=== PATIENT | female | born 2005 | race Caucasian/White ===

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

== ENCOUNTER → 2023-02-21 | Outpatient (CLI) | payer OTHER, SELFPAY | END | disposition home or self-care (01) | LOC: LABSPEC 10:25 | PROVIDERS: Visit Provider Registered Nurse | DX: O26.899 Other specified pregnancy related conditions, unspecified trimester (principal); N89.8 Other specified noninflammatory disorders of vagina; O99.891 Other specified diseases and conditions complicating pregnancy; Z3A.00 Weeks of gestation of pregnancy not specified | CPT/HCPCS: 87070; 87205 ==

== ENCOUNTER → 2023-03-11 | Outpatient (CLI) | payer OTHER, SELFPAY ==
[2023-03-11 09:08] LABS: Absolute Lymphocyte Count 1.55 X10^3/uL (0.83-4.51); Absolute Neutrophil Count 6.7 X10^3/uL (2.0-7.7); Basophil# 0.04 X10^3/uL; Basophil% 0.5 % (0-1); Eosinophil# 0.06 X10^3/uL; Eosinophils% 0.7 % (0-5); Hemoglobin 9.8 g/dL (12.0-15.0); Lymphocyte # 1.55 X10^3/ul (0.83-4.51); Lymphocyte % 17.5 % (19-41); Mean Corp Hgb Conc 32.7 g/dL (32-36); Mean Corpuscular Hgb 30.3 pg (27.0-32.0); Mean Corpuscular Volume 92.9 fL (81-99); Mean Platelet Vol. 9.2 fl (6.2-12.0); Monocyte# 0.43 X10^3/uL; Monocyte% 4.8 % (0-10); NRBC Flagged by Analyzer 0 % (0-5); Neutrophil # 6.65 X10^3/uL (2.7-7.7); Neutrophil % 74.9 % (47-70); Platelet Count 259 K/mm3 (150-450); RBC Distribution Width CV 12.9 % (11.6-14.6); Red Blood Count 3.23 M/mm3 (4.2-5.4); White Blood Count 8.9 K/mm3 (4.4-11.0)
[2023-03-11 09:17] LABS: Glucose Challenge Gest 1H 50g 139 mg/dL (70-140)
[2023-03-11 09:51] LABS: HIV - WCH Non-Reactive (Nonreactive); Syphilis Antibodies Non-reactive
== END | disposition home or self-care (01) ==
LOC: PAVLAB 08:39
PROVIDERS: Referring Provider Obstetrics & Gynecology; Visit Provider Obstetrics & Gynecology
DX: Z34.90 Encounter for supervision of normal pregnancy, unspecified, unspecified trimester (principal); Z3A.00 Weeks of gestation of pregnancy not specified
CPT/HCPCS: 36415; 82950; 85025; 86703; 86780

== ENCOUNTER → 2023-04-01 | Outpatient (CLI) | payer OTHER, SELFPAY ==
[2023-04-01 10:35] LABS: Glucose GTT-Gestation. Fasting 87 mg/dL (<105)
--- OUTSIDE RECORDS SUMMARY | 2023-04-01 10:41 | XMS RPT_ITS | CCD ---
Author Name Unknown Address [address] [place] [address] Organization [facility] Care Team Providers Care Garbage Collector Supervisor Name Role Phone PANKAJ HURST (PROCESS ANALYST) Unavailable Unavailable DEMAR AREVALO Attending Unavailable MANUEL MIR Primary Care Unavailable REFERRED, SELF Referring Unavailable ANTONIO CORDON Referring Unavailable MANUEL MIR Primary Care Unavailable GIRISH CUI Attending Unavailable ANTONIO CORDON Attending Unavailable MANUEL MIR Primary Care Unavailable GONZALES GUTHRIE Referring Unavailable ANTONIO CORDON Attending Unavailable MANUEL MIR Primary Care Unavailable NINOSKA PUENTES Referring Unavailable MANUEL MIR Primary Care Unavailable ASHOK EDGE Referring Unavailabl e DEMAR AREVALO Attending Unavailable Allergies Allergy Classification Reported Allergen(s) Allergy Type Date of Onset Reaction(s) Facility (1 source) fluconazole; Translations: [FLUCONAZOLE] Drug Allergy 11-03-2004 [facility] Repository Results Test Name Value Interpretation Reference Range Facil ity Encounters Encounter Date Encounter Type Care Provider Facility Start: 03-24-2023 End: 03-24-2023 ambulatory DEMAR GARDNERER [facility] Start: 03-17-2023 End: 03-17-2023 ambulatory ANTONIO A CORDON [facility] Start: 03-17-2023 End: 03-17-2023 ambulatory ANTONIO A CORDON [facility] Start: 02-14-2023 End: 02-14-2023 ambulatory ANTONIO A CORDON [facility] Start: 01-18-2023 End: 01-18-2023 ambulatory MANUEL MIR [facility] Start: 04-27-2017 End: 05-03-2017 Ambulatory PANKAJ Milton (PROCESS ANALYST) [facility] Payers Date Payer Category Payer Unknown [id number] 2.16. [id number] 2003 Unknown [id number] 2.16. [id number] 2003 Unknown [id number] 2.16. [id number] 2003 Unknown [id number] 2.16. [id number] 2003 Unknown [id number] 2.16. [id number] Private Health Insurance [id number] Unknown [id number] Clinical Note 03-17-2023 Note Date & Type Note Facility 03-17-2023 Note Kwadwo garcia is here for consultation at the request of Manuel Mir DO for: Abnormal Kidney History of Presenting Problem: Patient is accompanied by and history obtained from herself and her mother. Carrying a fetus with bilateral hydro. Was 9 bilaterally. 7 and 10 last visit. Bladder was noted to be prominent at first US. Normal amniotic fluid. 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 Stable at this time. 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 No issues currently. Past Surgical History: Procedure Laterality Date TYMPANOSTOMY TUBE PLACEMENT Allergies: No Known Allergies Medications: Outpatient Encounter Medications as of 03/17/2023 Medication Sig Dispense Refill MV-Min-Fe Fum-FA-DHA ( 1 PO) Take by mouth No facility-administered encounter medications on file as of 03/17/2023. Family Medical History: No family history on file. Social History: Social History Socioeconomic History Marital status: Single Spouse name: Not on file Number of children: Not on file Years of education: Not on file Highest education level: Not on file Occupational History Not on file Tobacco Use Smoking status: Never Smokeless tobacco: Never Substance and Sexual Activity Alcohol use: Not Currently Drug use: Never Sexual activity: Not on file Other Topics Concern Not on file Social History Narrative Not on file Additional History Review of Systems: No cardiac, respiratory/airway or bleeding disorders. See HPI for others pertinent to urology. Physical Examination: Physical Exam There were no vitals filed for this visit. : Bladder non-distended, gravid abdomen Laboratory Testing: No results found for this visit on 03/17/23. No results found for: URINECULT Imaging: See hpi. Independent review of imaging was provided for the patient (and family). Assessment & Plan: Kwadwo was seen today for abnormal kidney. Diagnoses and all orders for this visit: Kidney abnormality of fetus on ultrasound - AMB Referral To Urology Recommend amox prophylaxis and US within 1 week after . Discussed hydro, VUR, and concern for posterior urethral valves. Discussed possible additional testing with VCUG and/or Lasix scan. Discussed possible surgery, etc. All questions answered. Girish Cui MD March 17, 2023 [facility] Summary Purpose Family History No Family History Records FoundNo Family History Records Found Advance Directives No Advanced Directives Records FoundNo Advanced Directives Records Found Additional Source Comments INFORMATION SOURCE (unrecogn ized section and content) DATE CREATED AUTHOR AUTHOR'S ORGANIZ ATION 03/26/2023 [facility] FOR RECORDS PERTAINING TO PATIENTS WHO ARE OR HAVE BEEN ENROLLED IN A CHEMICAL DEPENDENCY/SUBSTANCEABUSE PROGRAM, SOME INFORMATION MAY BE OMITTED. This clinical summary was aggregated from multiple sources. Caution should be exercised in using it in the provision of clinical care. This summary normalizes information from multiple sources, and as a consequence, information in this document may materially change the coding, format and clinical context of patient data. In addition, data may be omitted in some cases. CLINICAL DECISIONS SHOULD BE BASED ON THE PRIMARY CLINICAL RECORDS. [employer] provides no warranty or guarantee of the accuracy or completeness of information in this document.
[2023-04-01 11:33] LABS: Glucose GTT-Gestational 1 Hr 191 mg/dL (<190)
[2023-04-01 12:51] LABS: Glucose GTT-Gestational 2 Hr 164 mg/dL (<165)
[2023-04-01 13:55] LABS: Glucose GTT-Gestational 3 Hr 135 L (<145)
== END | disposition home or self-care (01) ==
PROVIDERS: Obstetrics & Gynecology; Referring Provider Nurse Practitioner Women's Health; Visit Provider Nurse Practitioner Women's Health
DX: O99.810 Abnormal glucose complicating pregnancy (principal); Z3A.00 Weeks of gestation of pregnancy not specified
CPT/HCPCS: 36415; 82951; 82952

== ENCOUNTER 2023-04-14 11:47 | Outpatient (RCR) | payer OTHER, MEDICAID, SELFPAY | END 2023-04-27 23:59 | LOC: DC 11:47 | PROVIDERS: Referring Provider Obstetrics & Gynecology; Visit Provider Obstetrics & Gynecology | DX: O24.419 Gestational diabetes mellitus in pregnancy, unspecified control (principal) | CPT/HCPCS: 97802 ==

== ENCOUNTER 2023-05-12 11:30 | Outpatient (RCR) | payer OTHER, MEDICAID, SELFPAY | END 2023-05-26 23:59 | LOC: DC 11:30 | PROVIDERS: Referring Provider Obstetrics & Gynecology; Visit Provider Obstetrics & Gynecology | DX: O24.419 Gestational diabetes mellitus in pregnancy, unspecified control (principal) | CPT/HCPCS: 97803 ==

== ENCOUNTER → 2023-05-13 | Outpatient (CLI) | payer OTHER, MEDICAID, SELFPAY ==
--- OUTSIDE RECORDS SUMMARY | 2023-05-13 12:24 | XMS RPT_ITS | CCD ---
Author Name Unknown Address [address] [place] [address] Organization [facility] Care Team Providers Care Electrical Appliance Repairer Name Role Phone PANKAJ HURST (FUNERAL SERVICE APPRENTICE) Unavailable Unavailable MANUEL MIR Primary Care Unavailable ANTONIO CORDON Attending Unavailable GONZALES GUTHRIE Referring Unavailable MANUEL MIR Primary Care Unavailable NINOSKA PUENTES Referring Unavailable ANTONIO CORDON Attending Unavailable MANUEL MIR Primary Care Unavailable ASHOK EDGE Referring Unavailabl e DEMAR AREVALO Attending Unavailable MANUEL MIR Primary Care Unavailable GONZALES GUTHRIE Referring Unavailable DEMAR AREVALO Attending Unavailable ANTONIO CORDON Attending Unavailable MANUEL MIR Primary Care Unavailable GONZALES GUTHRIE Referring Unavailable MANUEL MIR Primary Care Unavailable DEMAR AREVALO Attending Unavailable GONZALES GUTHRIE Referring Unavailable MANUEL MIR Primary Care Unavailable DEMAR AREVALO Attending Unavailable GONZALES GUTHRIE Referring Unavailable MANUEL MIR Primary Care Unavailable ANTONIO CORDON Attending Unavailable GONZALES GUTHRIE Referring Unavailable MANUEL MIR Primary Care Unavailable REFERRED, SELF Referring Unavailable DEMAR AREVALO Attending Unavailable MANUEL MIR Primary Care Unavailable GIRISH CUI Attending Unavailable ANTONIO CORDON Referring Unavailable Allergies Allergy Classification Reported Allergen(s) Allergy Type Date of Onset Reaction(s) Facility (1 source) fluconazole; Translations: [FLUCONAZOLE] Drug Allergy 11-03-2004 [facility] Repository Results Test Name Value Interpretation Reference Range Facil ity Encounters Encounter Date Encounter Type Care Provider Facility Start: 05-05-2023 End: 05-05-2023 ambulatory MANUEL MIR [facility] Start: 04-28-2023 End: 04-28-2023 ambulatory ANTONIO [facility] Start: 04-21-2023 End: 04-21-2023 ambulatory MANUEL [facility] Start: 04-14-2023 End: 04-14-2023 ambulatory MANUEL [facility] Start: 04-07-2023 End: 04-07-2023 ambulatory MANUEL [facility] Start: 03-24-2023 End: 03-24-2023 ambulatory MANUEL [facility] Start: 03-17-2023 End: 03-17-2023 ambulatory MANUEL [facility] Start: 03-17-2023 End: 03-17-2023 ambulatory MANUEL [facility] Start: 02-14-2023 End: 02-14-2023 ambulatory MANUEL [facility] Start: 01-18-2023 End: 01-18-2023 ambulatory MANUEL [facility] Start: 04-27-2017 End: 05-03-2017 Ambulatory PANKAJ Milton (FUNERAL SERVICE APPRENTICE) [facility] Date Payer Category Payer Unknown [id number] 2.. [id number] 2003 Unknown [id number] 2.. [id number] 2003 Unknown [id number] 2. [id number] 2003 Unknown [id number] 2. [id number] 2003 Unknown [id number] 2.. [id number] 2003 Unknown [id number] 2.. [id number] 2003 Unknown [id number] 2.16. [id number] 2003 Unknown [id number] 2.16. [id number] 2003 Unknown [id number] 2.16. [id number] 2003 Unknown [id number] 2.16. [id number] Unknown [id number] Unknown [id number] Clinical Note 03-17-2023 Note Date & Type Note Facility 03-17-2023 Note Kwadwo Mcclendon garcia is here for consultation at the [...] answered. Girish Cui MD March 17, 2023 [facility] Summary Purpose Family History No Family History Records FoundNo Family History Records Found Advance Directives No Advanced Directives Records FoundNo Advanced Directives Records Found Additional Source Comments INFORMATION SOURCE (unrecogn ized section and content) DATE CREATED AUTHOR AUTHOR'S ORGANIZ ATION 05/07/2023 [facility] FOR RECORDS PERTAINING TO PATIENTS WHO [...] BE BASED ON THE PRIMARY CLINICAL RECORDS. [employer] provides no warranty or guarantee of the accuracy or completeness of information in this document.
== END | disposition home or self-care (01) ==
LOC: LABSPEC 12:04
PROVIDERS: Referring Provider Obstetrics & Gynecology; Visit Provider Obstetrics & Gynecology
DX: Z34.90 Encounter for supervision of normal pregnancy, unspecified, unspecified trimester (principal); Z3A.00 Weeks of gestation of pregnancy not specified
CPT/HCPCS: 87081

== ENCOUNTER 2023-05-19 09:00 | Inpatient (IN) | payer OTHER, MEDICAID, SELFPAY ==
[2023-05-19] VITALS (19 sets, daily range): BP systolic 106–120; BP diastolic 56–82; PULSE 87–109; TEMP 36.2–37; O2SAT 97–98; BMI 25.4
--- OUTSIDE RECORDS SUMMARY | 2023-05-19 09:34 | XMS RPT_ITS | CCD ---
Author Name Unknown Address [address] [place] [address] Organization [facility] Care Team Providers Care Roll Handler Name Role Phone PANKAJ HURST (QUALITY INTERN) Unavailable Unavailable ANTONIO CORDON Attending Unavailable NINOSKA PUENTES Referring Unavailable MANUEL MIR Primary Care Unavailable BRAVO, ANTONIO Allison Attending Unavailable GONZALES GUTHRIE Referring Unavailable MANUEL MIR Primary Care Unavailable ANTONIO CORDON Referring Unavailable GIRISH CUI Attending Unavailable MANUEL MIR Primary Care Unavailable DEMAR AREVALO Attending Unavailable REFERRED, SELF Referring Unavailable MANUEL MIR Primary Care Unavailable ANTONIO CORDON Attending Unavailable GONZALES GUTHRIE Referring Unavailable MANUEL MIR Primary Care Unavailable GONZALES GUTHRIE Referring Unavailable MICKEY, DEMAR Camarena Attending Unavailable MANUEL MIR Primary Care Unavailable GONZALES GUTHRIE Referring Unavailable MICKEY, DEMAR Camarena Attending Unavailable MANUEL MIR Primary Care Unavailable ANTONIO CORDON Attending Unavailable GONZALES GUTHRIE Referring Unavailable MANUEL MIR Primary Care Unavailable MICKEY, DEMAR Camarena Attending Unavailable GONZALES GUTHRIE Referring Unavailable MANUEL MIR Primary Care Unavailable GONZALES GUTHRIE Attending Unavailable GONZALES GUTHRIE Referring Unavailable MANUEL MIR Primary Care Unavailable MICKEY, DEMAR F Attending Unavailable ASHOK EDGE Referring Unavailabl e MANUEL MIR Primary Care Unavailable Allergies Allergy Classification Reported Allergen(s) Allergy Type Date of Onset Reaction(s) Facility (1 source) fluconazole; Translations: [FLUCONAZOLE] Drug Allergy 11-03-2004 [facility] Repository Results Test Name Value Interpretation Reference Range Facil ity Encounters Encounter Date Encounter Type Care Provider Facility Start: 05-12-2023 End: 05-12-2023 ambulatory G[facility]ZALES [facility] Start: 05-05-2023 End: 05-05-2023 ambulatory DEMAR [facility] Start: 04-28-2023 End: 04-28-2023 ambulatory ANTONIO [facility] Start: 04-21-2023 End: 04-21-2023 ambulatory GONZALES [facility] Start: 04-14-2023 End: 04-14-2023 ambulatory GONZALES [facility] Start: 04-07-2023 End: 04-07-2023 ambulatory ANTONIO [facility] Start: 03-24-2023 End: 03-24-2023 ambulatory DEMAR [facility] Start: 03-17-2023 End: 03-17-2023 ambulatory ANTONIO Keegan [facility] Start: 03-17-2023 End: 03-17-2023 ambulatory ANTONIO Keegan [facility] Start: 02-14-2023 End: 02-14-2023 ambulatory ANTONIO Keegan [facility] Start: 01-18-2023 End: 01-18-2023 ambulatory DEMAR [facility] Start: 04-27-2017 End: 05-03-2017 Ambulatory PANKAJ Milton (QUALITY INTERN) [facility] Payers Date Payer Category Payer Unknown [id number] 2.16. [id number] 2003 Unknown [id number] 2.16. [id number] 2003 Unknown [id number] 2.16. [id number] 2003 Unknown [id number] 2.. 840.1.652567.3.579.2.479 2003 Unknown [id number] 2.16. [id number] 2003 Unknown [id number] 2.16. 840.1.465130.3.579.2.479 2003 Unknown [id number] 2.16. 840.1.146171.3.579.2.479 2003 Unknown [id number] 2.16. 840.1.742196.3.579.2.479 2003 Unknown [id number] 2.16. 840.1.795073.3.579.2.479 2003 Unknown [id number] 2.16. 840.1.499212.3.579.2.479 2003 Unknown [id number] 2.16. [id number] Unknown [id number] Unknown [id number] Clinical Note 03-17-2023 Note Date & Type [...] answered. Girish Cui MD March 17, 2023 [facility] Summary Purpose Family History No Family History Records FoundNo Family History Records Found Advance Directives No Advanced Directives Records FoundNo Advanced Directives Records Found Additional Source Comments INFORMATION SOURCE (unrecogn ized section and content) DATE CREATED AUTHOR AUTHOR'S ORGANIZ ATION 05/13/2023 [facility] FOR RECORDS PERTAINING TO PATIENTS WHO ARE [...] BE BASED ON THE PRIMARY CLINICAL RECORDS. [employer] provides no warranty or guarantee of the accuracy or completeness of information in this document.
[2023-05-19] MEDS: Lactated Ringers 1,000 ML 50 ML IV (09:40)
[2023-05-19 10:04] LABS: Absolute Neutrophil Count 8.5 X10^3/uL (2.0-7.7); Basophil# 0.05 X10^3/uL; Basophil% 0.4 % (0-1); Eosinophil# 0.06 X10^3/uL; Eosinophils% 0.5 % (0-5); Hematocrit 33.7 % (37-47); Hemoglobin 11.1 g/dL (12.0-15.0); Lymphocyte % 16.1 % (19-41); Mean Corp Hgb Conc 32.9 g/dL (32-36); Mean Corpuscular Hgb 29.6 pg (27.0-32.0); Mean Corpuscular Volume 89.9 fL (81-99); Mean Platelet Vol. 9.7 fl (6.2-12.0); Monocyte# 0.66 X10^3/uL; Monocyte% 5.9 % (0-10); NRBC Flagged by Analyzer 0 % (0-5); Neutrophil # 8.49 X10^3/uL (2.7-7.7); Neutrophil % 75.9 % (47-70); Platelet Count 270 K/mm3 (150-450); RBC Distribution Width CV 14.5 % (11.6-14.6); RBC Distribution Width SD 47.1 fl (35.1-43.9); Red Blood Count 3.75 M/mm3 (4.2-5.4); White Blood Count 11.2 K/mm3 (4.4-11.0)
[2023-05-19] MEDS: 0.9% Normal Saline Single 100 ML IV.SOLN. INTRA-UTER (10:05)
[2023-05-19 10:54] LABS: Syphilis Antibodies Non-reactive
[2023-05-19] MEDS: Oxytocin 15 Units/NS 250ml 15 UNITS/250 ML IV.SOLN 2 UNITS IV (11:24)
[2023-05-19 11:52] LABS: Bedside Glucose 116 mg/dL (74-106)
[2023-05-19 13:07] LABS: Bedside Glucose 110 mg/dL (74-106)
[2023-05-19] MEDS: LACTATED RINGERS 500 ML 999 ML IV (13:40)
--- NOTE | 2023-05-19 18:17 | HP.PCM.OB_ITS ---
HPI - General General Date of Admission: 05/19/23 HPI Narrative KWADWO HUBBARD, is a 18 y/o @ 37 weeks 4 days who presents to L&D per [facility] for delivery. She was found to have a bpp of 6/8, extensive dilation of the renal pelvis (25mm) into the calyces and hydroureter (10mm), echogenic bowel, and stable umbilical vein varix. Maternal Data Information DANIELA Calculator Estimated Delivery Date Method Current WG Current Estimate 06/05/23 LMP (Certain) 37w 4d PFSH [facility] Medical History (Updated 05/19/23 @ 12:00 by Lola Bro) Abnormal glucose affecting Polyhydramnios Home Medications ferrous sulfate 325 mg (65 mg iron) tablet 325 mg PO DAILY Anemia #30 tabs 03/11/23 [Rx Last Taken 05/17/23 12:00] blood sugar diagnostic (Blood Glucose Test strips) #120 ea 04/04/23 [Rx Last Taken Unknown] blood-glucose meter #1 ea 04/04/23 [Rx Last Taken Unknown] lancets #200 ea 04/04/23 [Rx Last Taken Unknown] vit no.95-ferrous fumarate 28 mg-folic acid 800 mcg tablet () 1 tab PO DAILY 05/19/23 [History Last Taken 05/18/23] Allergy/AdvReac Type Severity Reaction Status Date / Time No Known Allergies Allergy Verified 05/19/23 11:52 Surgical History Status post myringotomy with tube placement of both ears Social History adopted: No current occupational status: employed current occupation: [employer] current occupational exposures/hazards: No pets and animals: Yes pets and animals: cat(s), fish and ferret(s) sexually active: Yes Smoking Status: Former smoker second hand exposure: No substance use type: does not use what type of physical activity do you participate in: walking keegan/orthodox: Denominational seatbelt use: always History 1 Elective abortions Hx Para 0 Spontaneous abortions Hx # Term Pregnancies Ectopic pregnancies Hx # Pregnancies Multiple births # of living children Visit Details Expected Delivery Route/Plan Labor Preferences- CB/BF classes: encouraged labor support person: Yossi labor intervention preferences: [] pain management options preferred: epidural cut cord/dad catch: maybe : yes PP control planned: discussed discussed possible routes of delivery and associated risks: [] special requests: [] Plans Covid status: discussed Flu vaccine: declines Tdap vaccine: Rhogam: na LARC form signed: yes Problem list reviewed and updated with the most current plan of care details and appropriate orders placed. Relevant counseling for the gestational age provided. Continue routine care and follow up unless otherwise noted in visit notes/problem list details OB Flowsheet Initial Weight: 108 lb Date -?-?-?-?-?-?-?-?-?-?-?-?- EGA Weight BP Urine Prot -?-?-?-?-?-?-?-?-?-?-?-?- Glucose FHR FuHt Pres Dilation -?-?-?-?-?-?-?-?-?-?-?-?- Effaced St Visit Note 11/05/22 -?-?-?-?-?-?-?-?-?-?-?-?- 9w 5d 108 lb (+0 oz) 112/60 -?-?-?-?-?-?-?-?-?-?-?-?- 175 -?-?-?-?-?-?-?-?-?-?-?-?- LC- CRL con with LMP. DANIELA 06/05/2023. teen . nipt/carrier desired. LC- CRL con with LMP. DANIELA 12/2023. nipt/carrier desired. 12/03/22 -?-?-?-?-?-?-?-?-?-?-?-?- 13w 5d 108 lb 6 oz (+6 oz) 110/64 Negative -?-?-?-?-?-?-?-?-?-?-?-?- Negative 160 -?-?-?-?-?-?-?-?-?-?-?-?- LC- no vb/crampi ng. discussed and declines nipt. reviewed normal labs. mfm anatomy ordered. 12/27/22 -?-?-?-?-?-?-?-?-?-?-?-?- 17w 1d 110 lb 6 oz (+2 lb 6 oz) 108/66 Negative -?-?-?-?-?-?-?-?-?-?-?-?- Negative 148 -?-?-?-?-?-?-?-?-?-?-?-?- MH-No VB, crampi ng. Nausea improved. Anatomy US MFM 01/18. 01/24/23 -?-?-?-?-?-?-?-?-?-?-?-?- 21w 1d 119 lb 8 oz (+11 lb 8 oz) 106/71 Negative -?-?-?-?-?-?-?-?-?-?-?-?- Negative 145 -?-?-?-?-?-?-?-?-?-?-?-?- JV- no lof, vagi nal bleeding, or dec fm. follow up in 3 more weeks for follow up of kidney ultrasound. 02/21/23 -?-?-?-?-?-?-?-?-?-?-?-?- 25w 1d 126 lb 2 oz (+18 lb 2 oz) 100/68 Negative -?-?-?-?-?-?-?-?-?-?-?-?- Negative 142 25 -?-?-?-?-?-?-?-?-?-?-?-?- LC- no lof/vb/ct x. good fm. vaginal itching. +thick white curdy d/c, diflucan sent. 03/22/23 -?-?-?-?-?-?-?-?-?-?-?-?- 29w 2d 129 lb (+21 lb) 110/72 Negative -?-?-?-?-?-?-?-?-?-?-?-?- Negative 148 28 -?-?-?-?-?-?-?-?-?-?-?-?- MH-NO VB, LOF. G ood FM. Now doing wkly BPP w MFM due to umbilical varices. Growth US Q4w. Start daily FE for anemia. Will change to PNV tablet as gummies don't have FE. Will call as 3 hr GTT not yet scheduled. Larc. 04/08/23 -?-?-?-?-?-?-?-?-?-?-?-?- 31w 5d 134 lb 6 oz (+26 lb 6 oz) 118/74 Negative -?-?-?-?-?-?-?-?-?-?-?-?- Negative 125 32 -?-?-?-?-?-?-?-?-?-?-?-?- LC- no vb/ctx/lo f. good fm. has gestational diabetes. showed how to use glucometer. 2hour pp today=95. starting to check sugar now. LC- no vb/ctx/lof. good fm. has gestational diabetes. showed how to use glucometer. 2hour pp today=95. starting to check sugar now. [facility] completing BPP and growth scans 04/22/23 -?-?-?-?-?-?-?-?-?-?-?-?- 33w 5d 136 lb 2 oz (+28 lb 2 oz) 120/72 Negative -?-?-?-?-?-?-?-?-?-?-?--?- Negative 150 34 -?-?-?-?-?-?-?-?-?-?-?-?- SM- no vb lof go od fm no reg ctx 05/06/23 -?-?-?-?-?-?-?-?-?-?-?-?- 35w 5d 138 lb 8 oz (+30 lb 8 oz) 103/67 Negative -?-?-?-?-?-?-?-?-?-?-?-?- Negative 135 35 -?-?-?-?-?-?-?-?-?-?-?-?- kw- no vb/lof/ct x. good fm. BS under range. GBS discussed. BPP and growth with MFM. 05/13/23 -?-?-?-?-?-?-?-?-?-?-?-?- 36w 5d 140 lb (+32 lb) 103/68 Negative -?-?-?-?-?-?-?-?-?-?-?-?- Negative 160 37 Cephalic 1 .5 -?-?-?-?-?-?-?-?-?-?-?-?- 40 -4 Sm- no vb lof good fm no regular ctx BS controlled, CARMEN upper limit of normal this week discussed IOL 39-40 depending on fluid and cervical exam ROS Constitutional Constitutional: Denies change in weight, fatigue, fever(s), headache(s), poor appetite or weakness Eyes Eyes: Denies blurry vision, change in vision, seeing flashes or spots in vision ENT HEENT: Denies dizziness, headache(s), loss taste/smell or sore throat Cardiovascular Cardiovascular: Denies chest pain, dizziness, dyspnea, irregular heart rhythm, leg edema, palpitations, rapid heart rate or vomiting Respiratory/Chest Respiratory/Chest: Denies chest tightness, cough, dyspnea or breast pain Gastrointestinal Gastrointestinal: Denies abdominal pain, anorexia, constipation, cramping, diarrhea, hemorrhoids, vomiting or weight changes Genitourinary Genitourinary: Denies dysuria, flank pain, genital lesions, genital pain, urinary frequency or urinary urgency Musculoskeletal Musculoskeletal: Denies back pain, difficulty walking, joint pain, limited range of motion, muscle cramps or numbness Integumentary Integumentary: Denies lesions or unusual bruising Neurologic Neurologic: Denies abnormal movements, abnormal speech, dizziness, numbness, seizure-like activity or syncope Psychiatric Psychiatric: Denies anxiety, behavioral changes, change in appetite, change in libido, cognitive impairment, confusion, depression, difficulty concentrating, hallucinations or suicidal thoughts Endocrine Endocrinology: Denies excessive sweating, polydipsia or polyuria Hematologic/Lymphatic Hematologic/Lymphatic: Denies easy bleeding, easy bruising or lymphadenopathy Allergic/Immunologic Allergic/Immunologic: Denies itchy eyes, lip swelling, seasonal rhinorrhea, rhinitis, throat swelling, tongue swelling, eczemia, wheezing or asthma Vital Signs Vital Signs Vital Signs: 05/19/23 09:20 05/19/23 09:20 05/19/23 11:29 Temperature Temperature Source Pulse Rate 94 Blood Pressure 119/81 H 118/71 BP Systolic 119 118 BP Diastolic 81 71 Pulse Ox 05/19/23 11:29 05/19/23 12:08 05/19/23 12:08 Temperature Temperature Source Pulse Rate 101 H 107 H Blood Pressure 119/76 BP Systolic 119 BP Diastolic 76 Pulse Ox 05/19/23 12:10 05/19/23 12:10 05/19/23 12:13 Temperature Temperature Source Temporal Pulse Rate 109 H Blood Pressure BP Systolic BP Diastolic Pulse Ox 98 05/19/23 12:13 05/19/23 12:13 05/19/23 14:39 Temperature 98.4 F Temperature Source Pulse Rate Blood Pressure 118/82 H BP Systolic 118 BP Diastolic 82 Pulse Ox 98 05/19/23 14:39 05/19/23 14:39 05/19/23 14:39 Temperature Temperature Source Temporal Pulse Rate 88 Blood Pressure BP Systolic BP Diastolic Pulse Ox 97 05/19/23 14:39 05/19/23 16:06 05/19/23 16:06 Temperature 97.3 F L Temperature Source Pulse Rate 95 Blood Pressure 120/76 BP Systolic 120 BP Diastolic 76 Pulse Ox 05/19/23 16:06 05/19/23 16:06 05/19/23 16:06 Temperature Temperature Source Temporal Pulse Rate Blood Pressure BP Systolic BP Diastolic Pulse Ox 98 98 05/19/23 16:06 05/19/23 16:06 05/19/23 17:38 Temperature 97.4 F L Temperature Source Temporal Temporal Pulse Rate Blood Pressure BP Systolic BP Diastolic Pulse Ox 05/19/23 17:38 05/19/23 17:38 05/19/23 17:38 Temperature Temperature Source Pulse Rate 100 Blood Pressure 117/72 BP Systolic 117 BP Diastolic 72 Pulse Ox 98 05/19/23 17:38 Temperature 97.9 F Temperature Source Pulse Rate Blood Pressure BP Systolic BP Diastolic Pulse Ox Weight Weight: 139 lb Body Mass Index (BMI) 25.4 Physical Exam Const alert, oriented x3, no apparent distress and healthy appearing General Appearance: cooperative; Negative for anxious HEENT normocephalic Face and Sinus: normal facial exam Eyes EOMs intact bilaterally and no scleral icterus General Eye: normal appearance of both eyes Neck full ROM and supple Lymph Lymphatic: no lymphadenopathy noted Chest Chest: abnormal inspection of the chest Resp normal respiratory effort Effort and Inspection: able to speak in complete sentences Cardio regular rate GI soft to palpation and non-tender Inspection: gravid Palpation: soft; Negative for tender external exam normal Back/Spine no CVA tenderness Extremity normal to inspection, full ROM and no clubbing, cyanosis or edema General Extremity: Negative for calf tenderness or edema Skin Lesions: no lesions Rashes: no rashes Psych mental status grossly normal Labs Labs Labs: Blood Type O POSITIVE Antibody Screen NEGATIVE Hct 33.7 % (37-47) L Hgb 11.1 g/dL (12.0-15.0) L Syphilis Total Ab Non-reactive Rubella IgG Antibody Reactive (Nonreactive) Hep Bs Antigen Non-Reactive (Nonreactive) Hepatitis C Antibody Non-Reactive (Nonreactive) Chlamydia DNA (CHRISTIAN) Negative (Negative) N.gonorrhoeae DNA (CHRISTIAN) Negative (Negative) HIV 1&2 Antibody Non-Reactive (Nonreactive) Glucose 1 Hr 50 gm 139 mg/dL (70-140) Gest Glucose Tolerance MG/DL Assessment & Plan (1) Supervision of high-risk : COMMENT: [id number] DANIELA 06/05/2023, boy, BF: Yossi (2) Amniotic fluid abnormality: COMMENT: borderline poly per MFM, await repeat and if poly consider 39 week IOL. otherwise 40 week IOL (3) Gestational diabetes: COMMENT: nutrition consult, check BS fasting & 2 hr post meals. controlled with diet. delivery by 40 (4) Varices of umbilical cord: COMMENT: weekly BPP w MFM (5) Anemia in preg-unspec: QUALIFIERS: Trimester: second trimester Qualified Code(s): O99.012 - Anemia complicating , second trimester COMMENT: add FE. Recheck 4 wk (6) pyelectasis: COMMENT: growth US q 4 weeks, repeat measurements to determine additional fu, has f/u with [place] end of feb. (7) : QUALIFIERS: Weeks of gestation: 36 weeks Qualified Code(s): Z3A. 36 - 36 weeks gestation of COMMENT: GBS neg, NIPT low risk, carrier testing neg. . anatomy reviewed PLAN: Plan IOL to include negrete bulb insertion, arom and pitocin as needed GBS is negative
--- NOTE | 2023-05-19 18:22 | PN_ITS ---
Progress Note pt is sitting on side of bed. 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
[2023-05-19 19:32] LABS: Bedside Glucose 79 mg/dL (74-106)
[2023-05-19 21:00] LABS: Bedside Glucose 85 mg/dL (74-106)
[2023-05-20] VITALS (76 sets, daily range): BP systolic 85–116; BP diastolic 48–81; PULSE 78–117; RESP 16–18; TEMP 36.3–37; O2SAT 93–100
[2023-05-20] MEDS: LACTATED RINGERS 500 ML 999 ML IV ×3 (00:06→14:54)
[2023-05-20 00:48] LABS: Bedside Glucose 86 mg/dL (74-106)
[2023-05-20] MEDS: fentaNYL-bupivacaine (epidural) 100 ML BAG EPIDURAL ×4 (01:12→14:53)
[2023-05-20] MEDS: Lactated Ringers 1,000 ML 200 ML IV ×3 (01:23→12:19)
[2023-05-20 05:18] LABS: Bedside Glucose 116 mg/dL (74-106)
[2023-05-20 05:18] LABS: Bedside Glucose 88 mg/dL (74-106)
[2023-05-20 05:18] LABS: Bedside Glucose 28 mg/dL (74-106)
[2023-05-20] MEDS: 0.9% Saline Lock 10 ML Syringe IV (05:38)
--- NOTE | 2023-05-20 07:04 | PCM.PN.BLA ---
Progress Note made change to 6 cm overnight current tracing: FHT: 140 Moderate variability reactive no decelerations category I tracing [place]: q 2-3 Contractions reviewed tracing abnormalities since last note: occasional late decel, resolved with position changes A/P: continue pit per protocol, check BS per active protocol
[2023-05-20 07:11] LABS: Bedside Glucose 99 mg/dL (74-106)
[2023-05-20 08:05] LABS: Bedside Glucose 98 mg/dL (74-106)
--- NOTE | 2023-05-20 08:15 | PCM.PN.OB ---
Subjective Subjective comfortable with epidural Objective Data Objective Data Vital Signs: Vital Signs Temp Pulse BP Pulse Ox 97.8 F 96 97/54 L 100 05/20/23 06:20 05/20/23 07:20 05/20/23 07:20 05/20/23 06:20 Weight: 139 lb Body Mass Index (BMI) 25.4 Intake & Output: Intake and Output for Last 24 Hours 05/18/23 05/19/23 05/20/23 23:59 23:59 23:59 Intake Total 769.22 / 769.22 2756.03 / 2756.03 Output Total 600 / 600 Balance 769.22 / 769.22 2156.03 / 2156.03 Lab / Micro Data 05/19/23 09:40 Labs: Laboratory Results - last 24 hr 05/19/23 09:40: WBC 11.2 H, RBC 3.75 L, Hgb 11.1 L, Hct 33.7 L, MCV 89.9, MCH 29.6, MCHC 32.9, RDW Std Deviation 47.1 H, RDW Coeff of Danita 14.5, Plt Count 270, MPV 9.7, Immature Gran % (Auto) 1.200 H, Neut % (Auto) 75.9 H, Lymph % (Auto) 16.1 L, [place] % (Auto) 5.9, Eos % (Auto) 0.5, Baso % (Auto) 0.4, Absolute Neuts (auto) 8.5 H, Absolute Lymphs (auto) 1.80, Nucleated RBC % 0, Syphilis Total Ab Non-reactive, Blood Type O POSITIVE, Antibody Screen NEGATIVE 05/19/23 11:34: POC Glucose 116 H 05/19/23 12:42: POC Glucose 110 H 05/19/23 16:36: POC Glucose 79 05/19/23 20:35: POC Glucose 85 05/20/23 00:21: POC Glucose 86 05/20/23 04:23: POC Glucose 28 L* 05/20/23 04:39: POC Glucose 88 05/20/23 04:57: POC Glucose 116 H 05/20/23 06:42: POC Glucose 99 05/20/23 07:44: POC Glucose 98 NST FHR Rate Baby A Baseline: 125 Variability:: Moderate Accelerations:: 15 x 15 Decelerations:: None NST Reactive:: Yes FHR Category:: Category I Assessment & Plan (1) Amniotic fluid abnormality: COMMENT: borderline poly per MFM, await repeat and if poly consider 39 week IOL. otherwise 40 week IOL (2) Gestational diabetes: COMMENT: nutrition consult, check BS fasting & 2 hr post meals. controlled with diet. delivery by 40 (3) Varices of umbilical cord: COMMENT: weekly BPP w MFM (4) pyelectasis: COMMENT: growth US q 4 weeks, repeat measurements to determine additional fu, has f/u with [place] end of feb. (5) : QUALIFIERS: Weeks of gestation: 36 weeks Qualified Code(s): Z3A.36 - 36 weeks gestation of COMMENT: GBS neg, NIPT low risk, carrier testing neg. . anatomy reviewed (6) Supervision of high-risk : COMMENT: [id number] DANIELA 06/05/2023, boy, BF: Yossi (7) Anemia in preg-unspec: QUALIFIERS: Trimester: second trimester Qualified Code(s): O99.012 - Anemia complicating , second trimester COMMENT: add FE. Recheck 4 wk (8) Encounter for induction of labor: COMMENT: s/p negrete bulb, now on pitocin
[2023-05-20 08:50] LABS: Bedside Glucose 94 mg/dL (74-106)
[2023-05-20 09:50] LABS: Bedside Glucose 92 mg/dL (74-106)
[2023-05-20 10:51] LABS: Bedside Glucose 86 mg/dL (74-106)
[2023-05-20 11:54] LABS: Bedside Glucose 82 mg/dL (74-106)
[2023-05-20 13:15] LABS: Bedside Glucose 101 mg/dL (74-106)
[2023-05-20 14:08] LABS: Bedside Glucose 90 mg/dL (74-106)
[2023-05-20] MEDS: Oxytocin 15 Units/NS 250ml 15 UNITS/250 ML IV.SOLN 14 UNITS IV (14:18)
[2023-05-20 15:18] LABS: Bedside Glucose 86 mg/dL (74-106)
[2023-05-20 16:10] LABS: Bedside Glucose 73 mg/dL (74-106)
--- NOTE | 2023-05-20 16:49 | PN_ITS ---
Progress Note Nurse called to inform that she has turned the pitocin off for intermittent late decelerations that are not resolving withposition change. current tracing: FHT: Moderate variability reactive cat 1 at times and other times category 2 with late decelerations [place]: q 1 -3 min Contractions cx: 4-5 cm/80/-1 with large caput and essentially unchanged from arom 24 hours ago. A/P: failed induction- plan for primary section now. After discussing the patient's diagnosis and treatment plan options, patient wishes to proceed with surgical management. I have discussed with the patient the risks, benefits, and alternatives of the procedure which include but are not limited to risks of anesthesia, bleeding, infection, possible damage to bowel, bladder, or surrounding vasculature which could lead to additional surgery to evaluate any complications. Patient agrees to procedure and wishes to proceed.
[2023-05-20] MEDS: Acetaminophen 500 MG Tablet PO (16:57)
[2023-05-20] MEDS: Sodium Citrate/Citric Acid 30 ML UDC PO (16:57)
[2023-05-20] MEDS: Cefazolin 2 GM in 0.9% Normal Saline (100mL Bag) 100 ML IV (17:25)
[2023-05-20] MEDS: Azithromycin 500 MG in Dextrose 5%-Water (250mL Bag) 250 ML 250 MG IV (17:30)
[2023-05-20] MEDS: Methylergonovine 0.2 MG/ML Ampul 0.200000000000000011 MG IM (17:36)
--- NOTE | 2023-05-20 17:57 | OP.PCM_ITS ---
Assessment & Plan (1) Amniotic fluid abnormality: COMMENT: borderline poly per MFM, await repeat and if poly consider 39 week IOL. otherwise 40 week IOL (2) Gestational diabetes: COMMENT: nutrition consult, check BS fasting & 2 hr post meals. controlled with diet. delivery by 40 (3) Varices of umbilical cord: COMMENT: weekly BPP w MFM (4) Anemia in preg-unspec: QUALIFIERS: Trimester: second trimester Qualified Code(s): O99.012 - Anemia complicating , second trimester COMMENT: add FE. Recheck 4 wk (5) pyelectasis: COMMENT: growth US q 4 weeks, repeat measurements to determine additional fu, has f/u with [place] end of feb. (6) : QUALIFIERS: Weeks of gestation: 36 weeks Qualified Code(s): Z3A.36 - 36 weeks gestation of COMMENT: GBS neg, NIPT low risk, carrier testing neg. . anatomy reviewed (7) Failed induction of labor: (8) intolerance to labor, delivered, current hospitalization: Maternal Data Information DANIELA Calculator Estimated Delivery Date Method Current WG Current Estimate 06/05/23 LMP (Certain) 37w 5d Final DANIELA Source: LMP Gestational age: 37 weeks 5 days [place] Doctor Who Attended Delivery: Radha Witt Details Operative Information Date of Procedure: 05/20/23 Pre-Operative Diagnosis: 18 y/o @ 37 weeks 5 days, bpp 6/8, failed induction, intolerance to labor Post-Operative Diagnosis: 18 y/o @ 37 weeks 5 days, bpp 6/8, failed induction, intolerance to labor Classification: JENNA Procedure Type: low transverse panama hat smearer #1: Madelyn Michaels Type of Anesthesia: Epidural Antibiotic Given: Ancef 2 grams IV x1 and Zithromax 500 mg/5 mL X1 Estimated Blood Loss: 500cc Procedure Start Time: 17:27 Procedure Stop Time: 18:03 Time of Delivery: 17:32 Findings Description of Procedure: The patient is a 18 y/o @ 37 weeks 4 days presented for induction of labor for bpp 6/8. Her cervix w as unchanged for 24 hours on pitocin. The pitocin was turned off at 1630 for intermittent late declerations that were not responding to position change and uterine tachysystole. Epidural anesthesia was found to be adequate and negrete catheter was in place. A vaginal prep was performed. The patient was placed in the dorsal supine position with leftward tilt. Patient was prepped and draped in the normal sterile fashion. Pfannenstiel skin incision was made with the scalpel and carried through to the underlying layer of fascia with the scalpel. Fascia was nicked in the midline and the incision extended laterally. The rectus bellies were dissected off superiorly and inferiorly with out complication both sharply and bluntly. The peritoneum was entered digitally. The incision was stretched and a low transverse uterine incision was made with the scalpel. The 's head was delivered atraumatically followed by the anterior and posterior shoulders without complication the rest of the infant delivered. The cord was clamped and cut and the infant was handed off to awaiting nurse. The placenta was delivered spontaneously immediately following and was noted to be intact and have a three- vessel cord. The uterus was exteriorized cleared of all clots and debris, and the incision was closed in a double layer closure using #1 Vicryl and #1Monocryl. The ovaries and fallopian tubes were noted to be within normal limits. The uterus was returned to the maternal abdomen and gutters were cleared of all clots and debris. The peritoneum was closed with 3-0 Monocryl in a running fashion. Gloves were changed prior to fascial closure. Fascia was closed with 0 PDS in a running fashion. Subcutaneous tissue was copiously irrigated and the skin was closed with 3-0 Monocryl in a subcuticular fashion. Mepilex dressing was applied without complication. Patient was taken to recovery in stable condition. Presentation: Positive for Vertex Amniotic Fluid Description: Clear Placental Delivery Description: Expressed Placenta Disposition: [facility] Cord Vessel Description: 3 Vessels Cord Entanglement: None Cord Gases: ABG and VBG A Gender: Male (1 minute): 8 (5 minute): 9 Delayed Cord Clamping: Yes Complications Risks of Surgery Discussed w/Patient: Bleeding, Anesthesia Risks, Infection, Need for Future C-Sections and Injury to surrounding structure(s) including bowel and bladder Complications: none Multi Select Codes Urinary/Genital Urinary/Genital CPT Codes: 27199 Delivery global pk
--- NOTE | 2023-05-20 18:08 | DCINST_ITS ---
Discharge Instructions Diet Discharge Diet: No restrictions Activity Discharge Activity: May Not Drive (for 2 weeks or while taking narcotic pain medications.), May Shower and May Take a Tub Bath (in 7 days.) May resume sexual activity in: 4-6 weeks Weight Bearing Status: Full weight bearing Lifting Restrictions: 20 pounds Dressing / Incision Call your doctor if your incision/area has: Continuous Slow Oozing, Sudden Increased Bleeding, Increased Pain/ Swelling, Increased Redness and Foul Smelling Discharge Call your doctor if you observe: Fever of 101 or Higher and Using more than 1 pad per hour Suture Line Care: Avoid Pulling/Pushing and Avoid Pinching/Bending Cleanse incision/area with: Soap & Water and Keep Dressing Clean & Dry Follow Up Care Please Follow Up With: Sera Bingham DO When: Call [phone] to make an appointment for an incision check in 1-2 weeks. Test Results: Test results from this visit will be discussed in further detail at your follow- up appointment, if applicable. Discharge Plan Admission Admit Date/Time: 05/19/23 09:00 Primary Reason for Your Visit: induction of labor, section Attending Provider: Sera Bingham Primary Care Provider: [facility] Primary Discharge Orders/Prescriptions Prescriptions: New ibuprofen 800 mg tablet 800 mg PO Q8H PRN (Reason: pain) Qty: 30 0RF No Action PNV cmb#95-ferrous fumarate-FA [] 28 mg iron- 800 mcg tablet 1 tab PO DAILY ferrous sulfate 325 mg (65 mg iron) tablet 325 mg PO DAILY Qty: 30 6RF (DME) blood-glucose meter Misc See Rx Instructions .MEDSUPPLY Qty: 1 0RF Rx Instructions: As directed- Test fasting and 2 hours after meals (DME) lancets Misc See Rx Instructions .MEDSUPPLY Qty: 200 4RF Rx Instructions: As directed-fasting & 2 hr post meals(4x/day) (DME) Blood Glucose Test Strip See Rx Instructions .Route Qty: 120 4RF Rx Instructions: As directed-fasting & 2 HR post meals(4x/day) Referrals / Follow Up: Care Physician,No Primary [Primary Care Provider] - Disposition Disposition (needs filled in before D/C Order can be placed): Home, Self Care
--- NOTE | 2023-05-20 18:23 | EX.PCM.OBRPT ---
Assessment & Plan (1) intolerance to labor, delivered, current hospitalization: (2) Failed induction of labor: (3) delivery delivered: COMMENT: JV intolerance to labor. boy:toyin Maternal Data Information DANIELA Calculator Estimated Delivery Date Method Current WG Current Estimate 06/05/23 LMP (Certain) 37w 5d Details Operative Information Post-Operative Diagnosis: c/s Procedure Type: low transverse court attendant #1: Madelyn Michaels Type of Anesthesia: Epidural Findings Description of Procedure: I was present and assisted Dr. Han from the start of the procedure to the end. I performed retraction, suture cutting, suction, and fundal pressure assistance during the procedure. I also performed skin closure with a 4-0 Monocryl suture in a running fashion with excellent hemostasis noted upon full closure. The wound was dressed with silver Mepilex and the patient was brought to recovery in stable condition. See 's Operative note for full details of the procedures. Amniotic Membrane Rupture Type: Artificial Procedures Urinary/Genital [id number]: [id number] Delivery [facility]
[2023-05-20] MEDS: Oxytocin 15 Units/NS 250ml 15 UNITS/250 ML IV.SOLN 83 UNITS IV (18:30)
[2023-05-20] MEDS: Ketorolac 30 MG/ML Syringe IV (18:52)
[2023-05-20] MEDS: Lactated Ringers 1,000 ML 100 ML IV (21:55)
[2023-05-20] MEDS: Acetaminophen 500 MG Tablet 1000 MG PO (23:00)
[2023-05-21] VITALS (8 sets, daily range): BP systolic 93–107; BP diastolic 59–75; PULSE 74–92; RESP 16–18; TEMP 36.7–37.1; O2SAT 97–99
[2023-05-21] MEDS: Ketorolac 30 MG/ML Syringe IV ×3 (00:46→12:33)
[2023-05-21] MEDS: Acetaminophen 500 MG Tablet 1000 MG PO ×4 (05:22→23:01)
[2023-05-21] MEDS: Enoxaparin 40 MG/0.4 ML Syringe SC (05:22)
[2023-05-21 05:43] LABS: Hematocrit 27.6 % (37-47); Hemoglobin 8.9 g/dL (12.0-15.0); Mean Corp Hgb Conc 32.2 g/dL (32-36); Mean Corpuscular Hgb 29.9 pg (27.0-32.0); Mean Corpuscular Volume 92.6 fL (81-99); Mean Platelet Vol. 9.9 fl (6.2-12.0); Platelet Count 221 K/mm3 (150-450); RBC Distribution Width CV 14.7 % (11.6-14.6); RBC Distribution Width SD 50.2 fl (35.1-43.9); Red Blood Count 2.98 M/mm3 (4.2-5.4); White Blood Count 13.7 K/mm3 (4.4-11.0)
[2023-05-21 05:55] LABS: Bedside Glucose 84 mg/dL (74-106)
[2023-05-21] MEDS: 0.9% Saline Lock 10 ML Syringe IV ×2 (07:00→12:33)
--- NOTE | 2023-05-21 10:32 | PCM.PN.OB ---
Subjective Subjective Patient doing well without complaints. Tolerating PO. Ambulating and voiding without difficulty. Feeding well. Denies chest pain, shortness of breath, calf pain/swelling, fevers, chills, lightheadedness. Objective Data Objective Data Vital Signs: Vital Signs Temp Pulse Resp BP Pulse Ox O2 Del Method 98.2 F 88 18 107/75 98 Room Air 05/21/23 09:15 05/21/23 09:15 05/21/23 09:15 05/21/23 09:15 05/21/23 09:15 05/21/23 09:15 Oxygen Delivery Method Room Air Weight: 139 lb Body Mass Index (BMI) 25.4 Intake & Output: Intake and Output for Last 24 Hours 05/19/23 05/20/23 05/21/23 23:59 23:59 23:59 Intake Total 769.22 / 769.22 5980.89 / 5980.89 845 / 845 Output Total 4000 / 4000 400 / 400 Balance 769.22 / 769.22 1980.89 / 1980.89 445 / 445 Lab / Micro Data 05/21/23 05:34 Labs: Laboratory Results - last 24 hr 05/20/23 10:33: POC Glucose 86 05/20/23 11:37: POC Glucose 82 05/20/23 12:47: POC Glucose 101 05/20/23 13:50: POC Glucose 90 05/20/23 14:52: POC Glucose 86 05/20/23 15:49: POC Glucose 73 L 05/21/23 05:29: POC Glucose 84 05/21/23 05:34: WBC 13.7 H, RBC 2.98 L, Hgb 8.9 L, Hct 27.6 L, MCV 92.6, MCH 29.9, MCHC 32.2, RDW Std Deviation 50.2 H, RDW Coeff of Danita 14.7 H, Plt Count 221, MPV 9.9 Physical Exam Const alert and no apparent distress Neck full ROM Lymph Lymphatic: no lymphadenopathy noted Chest inspection of chest normal Nipple/Areola: nipples/areola normal Resp normal respiratory effort, normal air movement and no retractions Cardio regular rate and regular rhythm GI normal to inspection, nondistended, normoactive bowel sounds Uterus Palpation: uterus fundus firm Extremity normal to inspection and full ROM Skin no rashes or lesions noted Skin Narrative: dressing c/d/i Psych mental status grossly normal Assessment & Plan (1) delivery delivered: COMMENT: JV intolerance to labor. boy:toyin (2) Anemia in preg-unspec: QUALIFIERS: Trimester: second trimester Qualified Code(s): O99.012 - Anemia complicating , second trimester COMMENT: iron supplementation. asymptomatic anemia today CBC 8.9/27.6 PLAN: Plan s/p LTCS PPD # 1 1. routine post care 2. breast feeding- support given, using a nipple shield. 3. rh positive 4. rubella immune 5. plan d/c home tomorrow
[2023-05-21] MEDS: Senna/Docusate Sodium 1 Tablet PO (12:32)
[2023-05-21] MEDS: Ferrous Gluconate 324 MG Tablet PO ×2 (12:32→17:48)
[2023-05-21] MEDS: Naproxen 500 MG Tablet PO (18:51)
[2023-05-21] MEDS: oxyCODONE 5 MG Tablet PO (23:03)
[2023-05-22 02:00] VITALS: BP 94/58; PULSE 78; RESP 16; TEMP 36.4; O2SAT 98
[2023-05-22] MEDS: Naproxen 500 MG Tablet PO ×2 (02:14→10:49)
[2023-05-22] MEDS: Acetaminophen 500 MG Tablet 1000 MG PO ×2 (05:21→10:49)
[2023-05-22] MEDS: Enoxaparin 40 MG/0.4 ML Syringe SC (05:22)
[2023-05-22] MEDS: Ferrous Gluconate 324 MG Tablet PO ×2 (07:58→12:13)
[2023-05-22 08:00] VITALS: BP 103/71; PULSE 90; RESP 14; TEMP 36.6; O2SAT 99
--- NOTE | 2023-05-22 09:09 | PCM.PN.OB ---
Subjective Subjective Patient doing well without complaints. Tolerating PO. Ambulating and voiding without difficulty. Feeding well. Denies chest pain, shortness of breath, calf pain/swelling, fevers, chills, lightheadedness. Objective Data Objective Data Vital Signs: Vital Signs Temp Pulse Resp BP Pulse Ox O2 Del Method 97.5 F L 78 16 94/58 L 98 Room Air 05/22/23 02:00 05/22/23 02:00 05/22/23 02:00 05/22/23 02:00 05/22/23 02:00 05/22/23 02:00 Oxygen Delivery Method Room Air Weight: 139 lb Body Mass Index (BMI) 25.4 Intake & Output: Intake and Output for Last 24 Hours 05/20/23 05/21/23 05/22/23 23:59 23:59 23:59 Intake Total 5980.89 / 5980.89 845 / 845 Output Total 4000 / 4000 1600 / 1600 Balance 1979. / -755 / -755 Lab / Micro Data 05/21/23 05:34 Physical Exam Const alert and no apparent distress Neck full ROM Lymph Lymphatic: no lymphadenopathy noted Chest inspection of chest normal Nipple/Areola: nipples/areola normal Resp normal respiratory effort, normal air movement and no retractions Cardio regular rate and regular rhythm GI normal to inspection, nondistended, normoactive bowel sounds Uterus Palpation: uterus fundus firm Extremity normal to inspection and full ROM Skin no rashes or lesions noted Skin Narrative: dressing c/d/i Psych mental status grossly normal Assessment & Plan (1) delivery delivered: COMMENT: JV intolerance to labor. boy:toyin (2) Anemia in preg-unspec: QUALIFIERS: Trimester: second trimester Qualified Code(s): O99.012 - Anemia complicating , second trimester COMMENT: iron supplementation. asymptomatic anemia today CBC 8.9/27.6 PLAN: continue on iron supplement and stool softeners for 30 days pp. PLAN: Plan s/p LTCS PPD # 2 1. routine post care 2. breast feeding- support given 3. rh positive 4. rubella immune 5. d/c home today
--- NOTE | 2023-05-22 09:10 | DS.PCM_ITS ---
Providers Date of Admission: 05/19/23 Primary Care Physician: No Primary Care Phys Reason For Visit: PRIMARY C SECTION Diagnosis Discharge Diagnosis (1) delivery delivered: Status: Acute Code(s): O82 - Encounter for delivery without indication (2) Anemia in preg-unspec: Status: Acute Code(s): O99.019 - Anemia complicating , unspecified trimester Qualifiers: Trimester: second trimester Qualified Code(s): O99.012 - Anemia complicating , second trimester Plan: continue on iron supplement and stool softeners for 30 days pp. Plan s/p LTCS PPD # 2 1. routine post care 2. breast feeding- support given 3. rh positive 4. rubella immune 5. d/c home today Medications at Discharge Home Medications ferrous sulfate 325 mg (65 mg iron) tablet 325 mg PO DAILY Anemia #30 tabs 03/11/23 blood sugar diagnostic (Blood Glucose Test strips) #120 ea 04/04/23 blood-glucose meter #1 ea 04/04/23 lancets #200 ea 04/04/23 vit no.95-ferrous fumarate 28 mg-folic acid 800 mcg tablet () 1 tab PO DAILY 05/19/23 ibuprofen 800 mg tablet 800 mg PO Q8H PRN pain #30 tabs 05/20/23 Hospital Course Operations section Procedures None Summary of Care Provided Minutes Spent on Discharge: 15 Hospital Course: Pt with IOL at 37 weeks with intolerance to labor and was a primary c/s. uncomplicated PP course. Physical Exam Const alert and no apparent distress Neck full ROM Lymph Lymphatic: no lymphadenopathy noted Chest inspection of chest normal Nipple/Areola: nipples/areola normal Resp normal respiratory effort, normal air movement and no retractions Cardio regular rate and regular rhythm GI normal to inspection, nondistended, normoactive bowel sounds Uterus Palpation: uterus fundus firm Extremity normal to inspection and full ROM Skin no rashes or lesions noted Skin Narrative: dressing c/d/i Psych mental status grossly normal Weight / BMI Weight Weight: 139 lb Body Mass Index (BMI) 25.4 ABG / Lab / Microbiology Data 05/21/23 05:34 D/C Instructions Discharge Diet: No restrictions May resume sexual activity in: 4-6 weeks Weight Bearing Status: Full weight bearing Call your doctor if your incision/area has: Continuous Slow Oozing, Sudden Increased Bleeding, Increased Pain/ Swelling, Increased Redness and Foul Smel ling Discharge Call your doctor if you observe: Fever of 101 or Higher and Using more than 1 pad per hour Suture Line Care: Avoid Pulling/Pushing and Avoid Pinching/Bending Remove Dressing in: 1 week Cleanse incision/area with: Soap & Water and Keep Dressing Clean & Dry Please Follow Up With: Sera Bingham DO When: Call [phone] to make an appointment for an incision check in 1-2 weeks. Meaningful Use Info Meaningful Use Diagnoses (Choose all that apply): None applicable Discharge Plan Admission Admit Date/Time: 05/19/23 09:00 Primary Reason for Your Visit: induction of labor, section Attending Provider: Sera Bingham Primary Care Provider: Lubna Danielle Primary Discharge Orders/Prescriptions Prescriptions: New ibuprofen 800 mg tablet 800 mg PO Q8H PRN (Reason: pain) Qty: 30 0RF No Action PNV cmb#95-ferrous fumarate-FA [] 28 mg iron- 800 mcg tablet 1 tab PO DAILY ferrous sulfate 325 mg (65 mg iron) tablet 325 mg PO DAILY Qty: 30 6RF (DME) blood-glucose meter Misc See Rx Instructions .MEDSUPPLY Qty: 1 0RF Rx Instructions: As directed- Test fasting and 2 hours after meals (DME) lancets Misc See Rx Instructions .MEDSUPPLY Qty: 200 4RF Rx Instructions: As directed-fasting & 2 hr post meals(4x/day) (DME) Blood Glucose Test Strip See Rx Instructions .Route Qty: 120 4RF Rx Instructions: As directed-fasting & 2 HR post meals(4x/day) Referrals / Follow Up: Care Physician,No Primary [Primary Care Provider] - Disposition Disposition (needs filled in before D/C Order can be placed): Home, Self Care
[2023-05-22] MEDS: Senna/Docusate Sodium 1 Tablet PO (10:49)
[2023-05-22 13:35] VITALS: BP 117/73; PULSE 77; RESP 16; TEMP 36.7; O2SAT 97
[2023-05-25 09:45] LABS: Bedside Glucose 89 mg/dL (74-106)
== END 2023-05-22 16:45 | disposition home or self-care (01) | DRG 788 ==
PROVIDERS: Obstetrics & Gynecology; Admitting Provider Obstetrics & Gynecology; Visit Provider Obstetrics & Gynecology
DX: O24.420 Gestational diabetes mellitus in childbirth, diet controlled (principal); O61.0 Failed medical induction of labor; O76 Abnormality in fetal heart rate and rhythm complicating labor and delivery; O61.1 Failed instrumental induction of labor; O69.89X0 Labor and delivery complicated by other cord complications, not applicable or unspecified; O99.02 Anemia complicating childbirth; Z37.0 Single live birth; Z3A.37 37 weeks gestation of pregnancy; Z87.891 Personal history of nicotine dependence
CPT/HCPCS: 59025; 59050; 82962; 85025; 85027; 86780; 86850; 86900; 86901; 99221; J7120; A4216; G0378; J2405

== ENCOUNTER → 2023-10-05 | Outpatient (CLI) | payer OTHER, MEDICAID, SELFPAY ==
[2023-10-05 09:30] LABS: Absolute Lymphocyte Count 1.48 X10^3/uL (0.83-4.51); Absolute Neutrophil Count 2.6 X10^3/uL (2.0-7.7); Basophil# 0.03 X10^3/uL; Basophil% 0.7 % (0-1); Eosinophil# 0.06 X10^3/uL; Eosinophils% 1.4 % (0-5); Hematocrit 38.9 % (37-47); Hemoglobin 12.9 g/dL (12.0-15.0); Lymphocyte # 1.48 X10^3/ul (0.83-4.51); Lymphocyte % 33.5 % (19-41); Mean Corp Hgb Conc 33.2 g/dL (32-36); Mean Corpuscular Hgb 28.1 pg (27.0-32.0); Mean Corpuscular Volume 84.7 fL (81-99); Monocyte# 0.29 X10^3/uL; Monocyte% 6.6 % (0-10); NRBC Flagged by Analyzer 0 % (0-5); Neutrophil # 2.55 X10^3/uL (2.7-7.7); Neutrophil % 57.6 % (47-70); Platelet Count 318 K/mm3 (150-450); RBC Distribution Width CV 13.5 % (11.6-14.6); RBC Distribution Width SD 41.1 fl (35.1-43.9); Red Blood Count 4.59 M/mm3 (4.2-5.4); White Blood Count 4.4 K/mm3 (4.4-11.0)
== END | disposition home or self-care (01) ==
LOC: PAVLAB 09:11
PROVIDERS: Visit Provider Nurse Practitioner Women's Health
DX: Z34.90 Encounter for supervision of normal pregnancy, unspecified, unspecified trimester (principal)
CPT/HCPCS: 36415; 85025